=== PATIENT | male | born 1995 | race African-American/Black ===

== ENCOUNTER 2019-02-19 03:43 | Emergency (ER) | payer SELFPAY ==
[~2019-02-19] VITALS: Ht 190.5 cm; Wt 79.4 kg
[2019-02-19 03:45] VITALS: BP 142/82
--- NOTE | 2019-02-19 03:48 | NUR ---
PT TAKEN TO BED 4
--- NOTE | 2019-02-19 03:56 | NUR ---
24 y/o m presented to ED with c/o cough x 2 months. AAOx4. chest and throat pain only when coughing. 8/10 pain, sharp. bilateral lung mancilla clear. no redness or exudate noted to throat. ERMD notified.
--- NOTE | 2019-02-19 04:00 | NUR ---
Patient discharged with v/s stable. Written and verbal after care instructions given and explained. Patient alert, oriented and verbalized understanding of instructions. Ambulatory with steady gait. All questions addressed prior to discharge. ID band removed. Patient advised to follow up with PMD. Rx of PROMETHAZINE WITH CODEINE, PREDNISONE WAS given. Patient educated on indication of medication including possible reaction and side effects. Opportunity to ask questions provided and answered.
[2019-02-19 04:04] VITALS: BP 142/82
== END 2019-02-19 04:00 | disposition home or self-care (01) ==
LOC: MED 03:43
DX: R05 Cough (principal); R03.0 Elevated blood-pressure reading, without diagnosis of hypertension; J02.9 Acute pharyngitis, unspecified; R11.10 Vomiting, unspecified; Z88.6 Allergy status to analgesic agent; Z88.8 Allergy status to other drugs, medicaments and biological substances
CPT/HCPCS: 99283